=== PATIENT | female | born 1980 | race Caucasian/White ===

== ENCOUNTER 2018-02-23 12:09 | Inpatient (IN) | payer MEDICARE, MEDICAID ==
[~2018-02-23] VITALS: Ht 157.5 cm; Wt 77.1 kg
[~2018-02-23 12:09] MED LIST: ARIP10TA8 PO; ARIP400S3 IM; ISON300 PO; NALT50TA PO; PYRI50TA9 PO; TRAZ150 PO
[2018-02-23] MEDS ORDERED: ZOLPIDEM TARTRATE 10 MG TABLET PO PRN (17:15)
[2018-02-23] MEDS ORDERED: HALOPERIDOL 5 MG TABLET PO PRN (17:15)
[2018-02-23] MEDS ORDERED: LORazepam 2 MG TABLET PO PRN (17:15)
[2018-02-23 17:29] VITALS: BP 112/68
[2018-02-23] MEDS ORDERED: CALAMINE/ZINC OXIDE 177 ML LOTION TP PRN (19:15)
[2018-02-24 00:56] VITALS: BP 134/90
[2018-02-24 07:46] VITALS: BP 136/60
[2018-02-24 07:55] LABS: BASOPHILS % (AUTO) 0.5 % (0.0-2.0); EOSINOPHILS % (AUTO) 0 % (1.0-6.0); HEMOGLOBIN 14.2 g/dL (12.0-16.0); MEAN CORPUSCULAR HEMOGLOBIN 31.4 pg (26.0-34.0); MEAN CORPUSCULAR HGB CONC 34.7 G/dL (31.0-37.0); MEAN CORPUSCULAR VOLUME 91 fL (80-100); MONOCYTES # (AUTO) 0.4 K/uL (0.1-1.0); MONOCYTES % (AUTO) 5.6 % (2.0-9.0); NEUTROPHILS # (AUTO) 4.9 K/uL (1.8-7.7); NEUTROPHILS % (AUTO) 66.9 % (40.0-70.0); PLATELET COUNT (AUTO) 260 K/uL (150-450); RED BLOOD CELL COUNT(AUTO) 4.53 MIL/uL (4.00-5.20); RED CELL DISTRIBUTION WIDTH 14.5 % (11.5-14.5)
[2018-02-24 08:05] LABS: HEMOGLOBIN A1C 5.1 % (4.5-6.2)
[2018-02-24 08:12] VITALS: BP 136/60
[2018-02-24 08:22] LABS: ALANINE AMINOTRANSFERASE 24 U/L (12-78); ALBUMIN 3.3 g/dL (3.4-5.0); ALKALINE PHOSPHATASE 70 U/L (46-116); ANION GAP 5 mmol/L (8-16); ASPARTATE AMINOTRANSFERASE 16 U/L (15-37); BILIRUBIN,TOTAL 0.3 mg/dL (0.1-1.0); CALCIUM, TOTAL 8.1 mg/dL (8.8-10.5); CARBON DIOXIDE 29 mmol/L (22-29); CHLORIDE 105 mmol/L (98-107); CHOL/HDL RATIO 1.8 (3.9-5.7); CHOLESTEROL 135 mg/dL (131-200); CREATININE 0.78 mg/dL (0.60-1.30); FREE T4 (FREE THYROXINE) 0.83 ng/dL (0.76-1.46); GLOMERULAR FILTR. RATE CALC > 60 mL/min (>60); GLUCOSE,RANDOM 84 mg/dL (70-110); HCG,QUANTITATIVE < 1 mIU/mL (0-6); HDL CHOLESTEROL 75 mg/dL (40-60); LDL CHOL (CALC.) 51 mg/dL (0-130); POTASSIUM 4.3 mmol/L (3.5-5.1); SODIUM SERUM 139 mmol/L (136-145); THYROID STIMULATING HORMONE 1.49 uIU/mL (0.36-3.74); TOTAL PROTEIN, SERUM 6.4 g/dL (6.4-8.2); TRIGLYCERIDES 47 mg/dL (15-150); UREA NITROGEN, BLOOD 10 mg/dL (7-18)
[2018-02-24] MEDS: NICOTINE 7 MG/24 HOUR PATCH TD SCH (08:42)
[2018-02-24] MEDS: ARIPiprazole 10 MG TABLET PO SCH ×2 (10:14→16:44)
[2018-02-24] MEDS ORDERED: IBUPROFEN 400 MG TABLET PO PRN (11:45)
[2018-02-24] MEDS ORDERED: ACETAMINOPHEN 325 MG TABLET PO PRN (11:45)
[2018-02-24 16:36] VITALS: BP 136/83
[2018-02-24] MEDS: TraZODone HCL 150 MG TABLET PO SCH (20:41)
[2018-02-25 06:49] VITALS: BP 147/86
[2018-02-25 08:36] VITALS: BP 129/65
[2018-02-25 08:38] LABS: HEMOGLOBIN A1C 5.5 % (4.5-6.2)
[2018-02-25 08:48] LABS: CHOL/HDL RATIO 2.3 (3.9-5.7); THYROID STIMULATING HORMONE 1.74 uIU/mL (0.36-3.74)
[2018-02-25] MEDS: ISONIAZID 300 MG TABLET PO SCH (08:54)
[2018-02-25] MEDS: PYRIDOXINE HCL 50 MG TABLET PO SCH (08:54)
[2018-02-25] MEDS: ARIPiprazole 10 MG TABLET PO SCH ×2 (08:54→16:39)
[2018-02-25] MEDS: NICOTINE 7 MG/24 HOUR PATCH TD SCH (08:55)
[2018-02-25 16:21] VITALS: BP 130/85
[2018-02-25] MEDS: TraZODone HCL 150 MG TABLET PO SCH (20:37)
[2018-02-26 01:40] VITALS: BP 121/61
[2018-02-26 08:11] VITALS: BP 112/60
[2018-02-26] MEDS: PYRIDOXINE HCL 50 MG TABLET PO SCH (08:25)
[2018-02-26] MEDS: ISONIAZID 300 MG TABLET PO SCH (08:25)
[2018-02-26] MEDS: NICOTINE 7 MG/24 HOUR PATCH TD SCH (08:25)
[2018-02-26] MEDS: ARIPiprazole 10 MG TABLET PO SCH ×2 (08:25→16:36)
[2018-02-26 16:07] VITALS: BP 131/87
[2018-02-26] MEDS: TraZODone HCL 150 MG TABLET PO SCH (20:37)
[2018-02-27 00:07] VITALS: BP 130/86
[2018-02-27 08:32] VITALS: BP 125/78
[2018-02-27] MEDS: ARIPiprazole 10 MG TABLET PO SCH ×2 (08:48→16:00)
[2018-02-27] MEDS: NICOTINE 7 MG/24 HOUR PATCH TD SCH (08:48)
[2018-02-27] MEDS: ISONIAZID 300 MG TABLET PO SCH (08:48)
[2018-02-27] MEDS: PYRIDOXINE HCL 50 MG TABLET PO SCH (08:48)
[2018-02-27 16:16] VITALS: BP 127/74
[2018-02-27] MEDS: TraZODone HCL 150 MG TABLET PO SCH (20:07)
[2018-02-28 06:34] VITALS: BP 134/82
[2018-02-28 08:36] VITALS: BP 117/61
[2018-02-28] MEDS: PYRIDOXINE HCL 50 MG TABLET PO SCH (08:56)
[2018-02-28] MEDS: NICOTINE 7 MG/24 HOUR PATCH TD SCH (08:57)
[2018-02-28] MEDS: ISONIAZID 300 MG TABLET PO SCH (08:57)
[2018-02-28] MEDS: ARIPiprazole 10 MG TABLET PO SCH ×2 (08:57→16:38)
[2018-02-28 16:10] VITALS: BP 137/82
[2018-02-28] MEDS: TraZODone HCL 150 MG TABLET PO SCH (20:34)
[2018-03-01 01:38] VITALS: BP 134/75
[2018-03-01 08:21] VITALS: BP 131/77
[2018-03-01] MEDS: PYRIDOXINE HCL 50 MG TABLET PO SCH (08:53)
[2018-03-01] MEDS: ISONIAZID 300 MG TABLET PO SCH (08:53)
[2018-03-01] MEDS: ARIPiprazole 10 MG TABLET PO SCH ×2 (08:53→16:45)
[2018-03-01] MEDS: NICOTINE 7 MG/24 HOUR PATCH TD SCH (08:54)
[2018-03-01] MEDS ORDERED: NICO-800 TD (09:36)
[2018-03-01 16:33] VITALS: BP 131/76
[2018-03-01] MEDS: TraZODone HCL 150 MG TABLET PO SCH (20:35)
[2018-03-02 06:02] VITALS: BP 120/82
[2018-03-02] MEDS: PYRIDOXINE HCL 50 MG TABLET PO SCH (08:28)
[2018-03-02] MEDS: ARIPiprazole 10 MG TABLET PO SCH (08:28)
[2018-03-02] MEDS: ISONIAZID 300 MG TABLET PO SCH (08:28)
[2018-03-02] MEDS: NICOTINE 7 MG/24 HOUR PATCH TD SCH (08:29)
[2018-03-02 09:26] VITALS: BP 121/78
== END 2018-03-02 16:59 | disposition home or self-care (01) | DRG 885 ==
LOC: B2X 17:11
PROVIDERS: ADMIT Psychiatry & Neurology Psychiatry; ATTEND Psychiatry & Neurology Psychiatry
DX: F25.1 Schizoaffective disorder, depressive type (principal); F10.10 Alcohol abuse, uncomplicated; F15.90 Other stimulant use, unspecified, uncomplicated; F17.200 Nicotine dependence, unspecified, uncomplicated; G47.00 Insomnia, unspecified; R76.11 Nonspecific reaction to tuberculin skin test without active tuberculosis; Z71.6 Tobacco abuse counseling; Z71.41 Alcohol abuse counseling and surveillance of alcoholic; Z71.51 Drug abuse counseling and surveillance of drug abuser
CPT/HCPCS: 83036; 84439; 84443

== ENCOUNTER 2018-03-16 10:24 | Inpatient (IN) | payer MEDICARE, MEDICAID ==
[~2018-03-16] VITALS: Ht 162.6 cm; Wt 79.4 kg
[~2018-03-16 10:24] MED LIST changes: -ARIP400S3 IM; -NALT50TA PO; +NICO-800 TD
[2018-03-16] MEDS ORDERED: HALOPERIDOL LACTATE 5 MG/ML VIAL IM ONE (10:45)
[2018-03-16] MEDS ORDERED: DiphenhydrAMINE HCL 50 MG/ML VIAL IM ONE (10:45)
[2018-03-16] MEDS ORDERED: LORazepam 2 MG/ML VIAL IM ONE (10:45)
[2018-03-16 11:19] LABS: AMPHET/METH SCREEN,URINE POSITIVE (NEGATIVE); BARBITURATE SCREEN, URINE NEGATIVE (NEGATIVE); BENZODIAZEPINES SCREEN,URINE NEGATIVE (NEGATIVE); CANNABINOID SCREEN,URINE NEGATIVE (NEGATIVE); COCAINE SCREEN,URINE NEGATIVE (NEGATIVE); METHADONE SCREEN, URINE NEGATIVE (NEGATIVE); OPIATE SCREEN,URINE NEGATIVE (NEGATIVE)
[2018-03-16 11:21] LABS: PHENCYCLIDINE SCREEN,URINE NEGATIVE (NEGATIVE)
[2018-03-16 11:29] LABS: BASOPHILS % (AUTO) 0.5 % (0.0-2.0); EOSINOPHILS % (AUTO) 0 % (1.0-6.0); HEMATOCRIT 37.5 % (36-46); LYMPHOCYTES # (AUTO) 1.7 K/uL (1.0-4.8); LYMPHOCYTES % (AUTO) 14.6 % (22.0-44.0); MEAN CORPUSCULAR HEMOGLOBIN 31.5 pg (26.0-34.0); MEAN CORPUSCULAR HGB CONC 34.8 G/dL (31.0-37.0); MEAN CORPUSCULAR VOLUME 91 fL (80-100); MONOCYTES # (AUTO) 0.6 K/uL (0.1-1.0); MONOCYTES % (AUTO) 4.9 % (2.0-9.0); NEUTROPHILS # (AUTO) 9.2 K/uL (1.8-7.7); PLATELET COUNT (AUTO) 237 K/uL (150-450); RED BLOOD CELL COUNT(AUTO) 4.15 MIL/uL (4.00-5.20); RED CELL DISTRIBUTION WIDTH 13.4 % (11.5-14.5)
[2018-03-16] MEDS ORDERED: LURA120T PO (11:33)
[2018-03-16] MEDS ORDERED: BENZ1TAB10 PO (11:33)
[2018-03-16 11:35] LABS: ANION GAP 9 mmol/L (8-16); CALCIUM, TOTAL 8.2 mg/dL (8.8-10.5); CARBON DIOXIDE 24 mmol/L (22-29); CHLORIDE 102 mmol/L (98-107); CREATININE 0.69 mg/dL (0.60-1.30); GLOMERULAR FILTR. RATE CALC > 60 mL/min (>60); GLUCOSE,RANDOM 90 mg/dL (70-110); POTASSIUM 3.8 mmol/L (3.5-5.1); SODIUM SERUM 135 mmol/L (136-145); UREA NITROGEN, BLOOD 4 mg/dL (7-18)
[2018-03-16 11:41] LABS: ALANINE AMINOTRANSFERASE 30 U/L (12-78); ALBUMIN 3.6 g/dL (3.4-5.0); ALKALINE PHOSPHATASE 81 U/L (46-116); ASPARTATE AMINOTRANSFERASE 19 U/L (15-37); BILIRUBIN,TOTAL 0.3 mg/dL (0.1-1.0); TOTAL PROTEIN, SERUM 6.9 g/dL (6.4-8.2)
[2018-03-16 14:35] VITALS: BP 127/68
[2018-03-16 16:09] VITALS: BP 115/60
[2018-03-16] MEDS: LORazepam 2 MG TABLET PO PRN (16:17)
[2018-03-16] MEDS: BENZTROPINE MESYLATE 1 MG TABLET PO SCH (16:17)
[2018-03-16] MEDS: ARIPiprazole 10 MG TABLET PO SCH (21:00)
[2018-03-16] MEDS: TraZODone HCL 150 MG TABLET PO SCH (21:00)
[2018-03-17 05:38] VITALS: BP 122/68
[2018-03-17] MEDS: BENZTROPINE MESYLATE 1 MG TABLET PO SCH ×2 (08:26→16:10)
[2018-03-17] MEDS: ISONIAZID 300 MG TABLET PO SCH (08:26)
[2018-03-17] MEDS: ARIPiprazole 10 MG TABLET PO SCH ×2 (08:26→20:18)
[2018-03-17] MEDS: NICOTINE 7 MG/24 HOUR PATCH TD SCH (08:27)
[2018-03-17 08:30] VITALS: BP 129/67
[2018-03-17 16:03] VITALS: BP 112/81
[2018-03-17] MEDS: LORazepam 2 MG TABLET PO PRN (16:10)
[2018-03-17] MEDS: TraZODone HCL 150 MG TABLET PO SCH (20:18)
[2018-03-18 04:19] VITALS: BP 110/79
[2018-03-18] MEDS: NICOTINE 7 MG/24 HOUR PATCH TD SCH (08:25)
[2018-03-18] MEDS: BENZTROPINE MESYLATE 1 MG TABLET PO SCH ×2 (08:25→16:24)
[2018-03-18] MEDS: LORazepam 2 MG TABLET PO PRN ×2 (08:25→16:24)
[2018-03-18] MEDS: ARIPiprazole 10 MG TABLET PO SCH ×2 (08:25→20:27)
[2018-03-18] MEDS: ISONIAZID 300 MG TABLET PO SCH (08:25)
[2018-03-18 08:34] VITALS: BP 115/65
[2018-03-18 16:14] VITALS: BP 126/72
[2018-03-18] MEDS: TraZODone HCL 150 MG TABLET PO SCH (20:27)
[2018-03-19 01:33] VITALS: BP 128/68
[2018-03-19] MEDS: LORazepam 2 MG TABLET PO PRN ×2 (08:04→17:26)
[2018-03-19] MEDS: BENZTROPINE MESYLATE 1 MG TABLET PO SCH ×2 (08:04→17:26)
[2018-03-19] MEDS: NICOTINE 7 MG/24 HOUR PATCH TD SCH (08:04)
[2018-03-19] MEDS: ISONIAZID 300 MG TABLET PO SCH (08:04)
[2018-03-19] MEDS: ARIPiprazole 10 MG TABLET PO SCH ×2 (08:04→21:09)
[2018-03-19 08:18] VITALS: BP 112/60
[2018-03-19] MEDS ORDERED: ACETAMINOPHEN 325 MG TABLET PO PRN (16:00)
[2018-03-19] MEDS ORDERED: IBUPROFEN 400 MG TABLET PO PRN (16:00)
[2018-03-19 16:24] VITALS: BP 118/80
[2018-03-19] MEDS: ZOLPIDEM TARTRATE 10 MG TABLET PO PRN (21:10)
[2018-03-19] MEDS: TraZODone HCL 150 MG TABLET PO SCH (21:10)
[2018-03-20 00:30] VITALS: BP 119/66
[2018-03-20 08:09] VITALS: BP 108/62
[2018-03-20] MEDS: ISONIAZID 300 MG TABLET PO SCH (08:38)
[2018-03-20] MEDS: ARIPiprazole 10 MG TABLET PO SCH ×2 (08:38→20:09)
[2018-03-20] MEDS: NICOTINE 7 MG/24 HOUR PATCH TD SCH (08:38)
[2018-03-20] MEDS: BENZTROPINE MESYLATE 1 MG TABLET PO SCH ×2 (08:38→16:01)
[2018-03-20 16:00] VITALS: BP 114/69
[2018-03-20] MEDS: TraZODone HCL 150 MG TABLET PO SCH (20:09)
[2018-03-21 06:16] VITALS: BP 130/87
[2018-03-21] MEDS: BENZTROPINE MESYLATE 1 MG TABLET PO SCH ×2 (08:04→16:06)
[2018-03-21] MEDS: ISONIAZID 300 MG TABLET PO SCH (08:04)
[2018-03-21] MEDS: NICOTINE 7 MG/24 HOUR PATCH TD SCH (08:05)
[2018-03-21] MEDS: ARIPiprazole 10 MG TABLET PO SCH ×2 (08:05→20:40)
[2018-03-21 08:08] LABS: BASOPHILS % (AUTO) 0.7 % (0.0-2.0); EOSINOPHILS % (AUTO) 0 % (1.0-6.0); HEMOGLOBIN 13.8 g/dL (12.0-16.0); LYMPHOCYTES # (AUTO) 1.8 K/uL (1.0-4.8); LYMPHOCYTES % (AUTO) 31.3 % (22.0-44.0); MEAN CORPUSCULAR HEMOGLOBIN 31.4 pg (26.0-34.0); MEAN CORPUSCULAR HGB CONC 34.5 G/dL (31.0-37.0); MEAN CORPUSCULAR VOLUME 91 fL (80-100); MONOCYTES # (AUTO) 0.3 K/uL (0.1-1.0); MONOCYTES % (AUTO) 5.9 % (2.0-9.0); NEUTROPHILS # (AUTO) 3.6 K/uL (1.8-7.7); NEUTROPHILS % (AUTO) 62.1 % (40.0-70.0); PLATELET COUNT (AUTO) 239 K/uL (150-450)
[2018-03-21 08:18] LABS: ANION GAP 6 mmol/L (8-16); CALCIUM, TOTAL 8.2 mg/dL (8.8-10.5); CARBON DIOXIDE 28 mmol/L (22-29); CHLORIDE 100 mmol/L (98-107); CREATININE 0.84 mg/dL (0.60-1.30); GLOMERULAR FILTR. RATE CALC > 60 mL/min (>60); GLUCOSE,RANDOM 109 mg/dL (70-110); POTASSIUM 4.2 mmol/L (3.5-5.1); SODIUM SERUM 134 mmol/L (136-145); UREA NITROGEN, BLOOD 11 mg/dL (7-18)
[2018-03-21 08:54] VITALS: BP 123/73
[2018-03-21] MEDS: LORazepam 2 MG TABLET PO PRN (16:06)
[2018-03-21 16:12] VITALS: BP 142/72
[2018-03-21] MEDS: HALOPERIDOL 5 MG TABLET PO PRN (19:12)
[2018-03-21] MEDS: TraZODone HCL 150 MG TABLET PO SCH (20:39)
[2018-03-21] MEDS: ZOLPIDEM TARTRATE 10 MG TABLET PO PRN (20:40)
[2018-03-22 03:59] VITALS: BP 132/76
[2018-03-22 08:12] VITALS: BP 100/64
[2018-03-22] MEDS: BENZTROPINE MESYLATE 1 MG TABLET PO SCH ×2 (08:41→16:45)
[2018-03-22] MEDS: ISONIAZID 300 MG TABLET PO SCH (08:42)
[2018-03-22] MEDS: NICOTINE 7 MG/24 HOUR PATCH TD SCH (08:42)
[2018-03-22] MEDS: ARIPiprazole 10 MG TABLET PO SCH ×2 (08:42→20:43)
[2018-03-22 09:00] VITALS: BP 110/72
[2018-03-22] MEDS: LORazepam 2 MG TABLET PO PRN ×2 (09:12→16:45)
[2018-03-22 16:17] VITALS: BP 124/55
[2018-03-22] MEDS: HALOPERIDOL 5 MG TABLET PO PRN (16:45)
[2018-03-22 19:48] VITALS: BP 128/76
[2018-03-22] MEDS: TraZODone HCL 150 MG TABLET PO SCH (20:43)
[2018-03-22] MEDS: ZOLPIDEM TARTRATE 10 MG TABLET PO PRN (20:43)
[2018-03-23 01:45] VITALS: BP 124/74
[2018-03-23] MEDS: ARIPiprazole 10 MG TABLET PO SCH ×2 (08:01→20:39)
[2018-03-23] MEDS: NICOTINE 7 MG/24 HOUR PATCH TD SCH (08:01)
[2018-03-23] MEDS: ISONIAZID 300 MG TABLET PO SCH (08:01)
[2018-03-23] MEDS: BENZTROPINE MESYLATE 1 MG TABLET PO SCH ×2 (08:01→16:29)
[2018-03-23 08:33] VITALS: BP 97/60
[2018-03-23 08:36] VITALS: BP 112/74
[2018-03-23] MEDS: LORazepam 2 MG TABLET PO PRN ×2 (08:36→16:29)
[2018-03-23 16:18] VITALS: BP 116/74
[2018-03-23] MEDS: HALOPERIDOL 5 MG TABLET PO PRN (16:29)
[2018-03-23] MEDS: ZOLPIDEM TARTRATE 10 MG TABLET PO PRN (20:35)
[2018-03-23] MEDS: TraZODone HCL 150 MG TABLET PO SCH (20:39)
[2018-03-24 07:17] VITALS: BP 110/72
[2018-03-24 08:28] VITALS: BP 107/54
[2018-03-24 08:28] LABS: ANION GAP 5 mmol/L (8-16); CALCIUM, TOTAL 8.2 mg/dL (8.8-10.5); CARBON DIOXIDE 30 mmol/L (22-29); CHLORIDE 103 mmol/L (98-107); CREATININE 0.81 mg/dL (0.60-1.30); GLOMERULAR FILTR. RATE CALC > 60 mL/min (>60); GLUCOSE,RANDOM 73 mg/dL (70-110); POTASSIUM 5.1 mmol/L (3.5-5.1); SODIUM SERUM 138 mmol/L (136-145); UREA NITROGEN, BLOOD 15 mg/dL (7-18)
[2018-03-24] MEDS: BENZTROPINE MESYLATE 1 MG TABLET PO SCH ×2 (08:55→16:21)
[2018-03-24] MEDS: NICOTINE 7 MG/24 HOUR PATCH TD SCH (08:55)
[2018-03-24] MEDS: ISONIAZID 300 MG TABLET PO SCH (08:55)
[2018-03-24] MEDS: ARIPiprazole 10 MG TABLET PO SCH ×2 (08:55→20:14)
[2018-03-24 10:30] VITALS: BP 114/62
[2018-03-24] MEDS: LORazepam 2 MG TABLET PO PRN ×2 (10:34→16:21)
[2018-03-24 16:05] VITALS: BP 118/74
[2018-03-24] MEDS: TraZODone HCL 150 MG TABLET PO SCH (20:13)
[2018-03-24] MEDS: ZOLPIDEM TARTRATE 10 MG TABLET PO PRN (21:44)
[2018-03-25 01:36] VITALS: BP 120/89
[2018-03-25] MEDS: ARIPiprazole 10 MG TABLET PO SCH ×2 (08:10→20:12)
[2018-03-25] MEDS: NICOTINE 7 MG/24 HOUR PATCH TD SCH (08:10)
[2018-03-25] MEDS: ISONIAZID 300 MG TABLET PO SCH (08:10)
[2018-03-25] MEDS: BENZTROPINE MESYLATE 1 MG TABLET PO SCH ×2 (08:10→16:07)
[2018-03-25] MEDS: HALOPERIDOL 5 MG TABLET PO PRN (08:10)
[2018-03-25] MEDS: LORazepam 2 MG TABLET PO PRN ×2 (08:10→16:07)
[2018-03-25 08:21] VITALS: BP 115/72
[2018-03-25 16:06] VITALS: BP 130/80
[2018-03-25 16:15] VITALS: BP 120/80
[2018-03-25] MEDS: TraZODone HCL 150 MG TABLET PO SCH (20:12)
[2018-03-26 00:16] VITALS: BP 129/80
[2018-03-26 08:10] VITALS: BP 120/73
[2018-03-26] MEDS: LORazepam 2 MG TABLET PO PRN (09:00)
[2018-03-26] MEDS: ISONIAZID 300 MG TABLET PO SCH (09:00)
[2018-03-26] MEDS: ARIPiprazole 10 MG TABLET PO SCH ×2 (09:00→20:20)
[2018-03-26] MEDS: NICOTINE 7 MG/24 HOUR PATCH TD SCH (09:00)
[2018-03-26] MEDS: BENZTROPINE MESYLATE 1 MG TABLET PO SCH ×2 (09:00→15:57)
[2018-03-26 16:06] VITALS: BP 118/75
[2018-03-26] MEDS: TraZODone HCL 150 MG TABLET PO SCH (20:20)
[2018-03-27 00:15] VITALS: BP 123/79
[2018-03-27 08:15] VITALS: BP 116/76
[2018-03-27] MEDS: ARIPiprazole 10 MG TABLET PO SCH ×2 (09:07→20:30)
[2018-03-27] MEDS: LORazepam 2 MG TABLET PO PRN ×2 (09:07→16:44)
[2018-03-27] MEDS: NICOTINE 7 MG/24 HOUR PATCH TD SCH (09:07)
[2018-03-27] MEDS: BENZTROPINE MESYLATE 1 MG TABLET PO SCH ×2 (09:07→16:44)
[2018-03-27] MEDS: ISONIAZID 300 MG TABLET PO SCH (09:08)
[2018-03-27 16:36] VITALS: BP 127/89
[2018-03-27] MEDS: ZOLPIDEM TARTRATE 10 MG TABLET PO PRN (20:30)
[2018-03-27] MEDS: TraZODone HCL 150 MG TABLET PO SCH (20:30)
[2018-03-28 05:57] VITALS: BP 121/72
[2018-03-28] MEDS: BENZTROPINE MESYLATE 1 MG TABLET PO SCH ×2 (08:04→16:43)
[2018-03-28] MEDS: ISONIAZID 300 MG TABLET PO SCH (08:04)
[2018-03-28] MEDS: ARIPiprazole 10 MG TABLET PO SCH ×2 (08:04→20:28)
[2018-03-28] MEDS: NICOTINE 7 MG/24 HOUR PATCH TD SCH (08:04)
[2018-03-28 08:13] VITALS: BP 100/53
[2018-03-28 09:15] VITALS: BP 112/66
[2018-03-28 10:15] VITALS: BP 118/68
[2018-03-28 16:14] VITALS: BP 129/76
[2018-03-28] MEDS: LORazepam 2 MG TABLET PO PRN (16:43)
[2018-03-28] MEDS: ZOLPIDEM TARTRATE 10 MG TABLET PO PRN (20:28)
[2018-03-28] MEDS: TraZODone HCL 150 MG TABLET PO SCH (20:28)
[2018-03-29 01:40] VITALS: BP 112/80
[2018-03-29] MEDS: ISONIAZID 300 MG TABLET PO SCH (08:45)
[2018-03-29] MEDS: ARIPiprazole 10 MG TABLET PO SCH ×2 (08:45→20:47)
[2018-03-29] MEDS: BENZTROPINE MESYLATE 1 MG TABLET PO SCH ×2 (08:45→17:04)
[2018-03-29] MEDS: NICOTINE 7 MG/24 HOUR PATCH TD SCH (08:50)
[2018-03-29 09:12] VITALS: BP 116/88
[2018-03-29 16:28] VITALS: BP 128/77
[2018-03-29] MEDS: LORazepam 2 MG TABLET PO PRN (17:04)
[2018-03-29] MEDS: ZOLPIDEM TARTRATE 10 MG TABLET PO PRN (20:47)
[2018-03-29] MEDS: TraZODone HCL 150 MG TABLET PO SCH (20:47)
[2018-03-30 01:15] VITALS: BP 135/71
[2018-03-30] MEDS: ARIPiprazole 10 MG TABLET PO SCH (08:28)
[2018-03-30] MEDS: ISONIAZID 300 MG TABLET PO SCH (08:28)
[2018-03-30] MEDS: BENZTROPINE MESYLATE 1 MG TABLET PO SCH (08:28)
[2018-03-30] MEDS: NICOTINE 7 MG/24 HOUR PATCH TD SCH (08:29)
[2018-03-30 08:35] VITALS: BP 100/57
== END 2018-03-30 13:30 | disposition home or self-care (01) | DRG 885 ==
LOC: EMS 10:25 → B3A 13:16
PROVIDERS: ADMIT Psychiatry & Neurology Psychiatry; ATTEND Psychiatry & Neurology Psychiatry
DX: F25.1 Schizoaffective disorder, depressive type (principal); E87.1 Hypo-osmolality and hyponatremia; D72.829 Elevated white blood cell count, unspecified; E87.5 Hyperkalemia; F17.210 Nicotine dependence, cigarettes, uncomplicated; F10.10 Alcohol abuse, uncomplicated; F15.10 Other stimulant abuse, uncomplicated; R76.11 Nonspecific reaction to tuberculin skin test without active tuberculosis; Z79.899 Other long term (current) drug therapy; Z71.51 Drug abuse counseling and surveillance of drug abuser; Z71.41 Alcohol abuse counseling and surveillance of alcoholic; Z71.6 Tobacco abuse counseling
CPT/HCPCS: 84132; 87081; 96372; 99285; G0480; J1200; J1630; J2060